=== PATIENT | male | born 1995 | race Caucasian/White ===

== ENCOUNTER 2019-01-27 23:33 | Emergency (ER) | payer BC ==
[~2019-01-27] VITALS: Ht 172.7 cm; Wt 65.8 kg
[2019-01-27] MEDS ORDERED: ADDERALL XR 3030 MG (23:46)
[2019-01-27] MEDS ORDERED: BRINTELLIX20 MG (23:48)
[2019-01-27] MEDS ORDERED: INTUNIV1 MG (23:50)
[2019-01-28 00:08] VITALS: BP 132/67
== END 2019-01-28 00:09 | disposition home or self-care (01) ==
LOC: M.ERS 23:33
DX: S61.012A Laceration without foreign body of left thumb without damage to nail, initial encounter (principal); W26.0XXA Contact with knife, initial encounter; Y93.89 Activity, other specified; Y92.89 Other specified places as the place of occurrence of the external cause; Y99.8 Other external cause status